=== PATIENT | male | born 1975 ===

== ENCOUNTER 2018-02-06 03:41 | Emergency (ER) | payer OTHER ==
[2018-02-06 03:53] VITALS: RESP 18
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
[2018-02-06] MEDS ORDERED: Lidocaine 1% Inj (20ml) ONE (04:37)
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
[2018-02-06] MEDS ORDERED: Morphine 4 mg/ml ISec ONE (05:16)
[2018-02-06] MEDS ORDERED: Morphine 4 mg/ml ISec IM STA (05:16)
[2018-02-06] MEDS ORDERED: TDAP Vaccine 0.5 mL Syr IM ONE (05:17)
--- NOTE | 2018-02-06 06:26 | PCM.PROC ---
Procedures Attestation:: I certify that I have explained the specified Operation(s) or Procedure(s), risks, benefits and reasonable alternatives to the Patient and/or other person responsible. The opportunity was given to ask questions and all questions answered - Laceration lidocaine 1% linear irrigated extensively right face 6-0 vicryl local infiltration running Site: face Side (if applicable): right Size (cm): 5 Description: linear Depth: simple, single layer Anesthesia used: lidocaine 1% Anesthesia technique: local infiltration Amount (mLs): 10 Pre-repair: wound explored, irrigated extensively, deep structures intact Skin layer closed with: vicryl Size: 6-0 Technique: simple, interrupted, running Subcutaneous layer closed with: vicryl
[2018-02-06 08:20] VITALS: BP 118/76; PULSE 76; TEMP 98; O2SAT 98
== END 2018-02-06 08:20 | disposition home or self-care (01) ==
LOC: ED 03:41
DX: S01.81XA Laceration without foreign body of other part of head, initial encounter (principal); V49.9XXA Car occupant (driver) (passenger) injured in unspecified traffic accident, initial encounter; Y92.410 Unspecified street and highway as the place of occurrence of the external cause; Z23 Encounter for immunization
CPT/HCPCS: 12013; 70450; 90471; 90715; 96372; 99285; J2270